=== PATIENT | male | born 1965 | race Caucasian/White ===

== ENCOUNTER 2016-11-01 10:36 | Inpatient (IN) | payer MEDICAID ==
[2016-11-06] MEDS ORDERED: ACETAMINOPHEN 325 MG TAB PO PRN (13:27)
--- NOTE | 2016-11-06 13:34 | PDCARPN ---
Cardiology Progress Note Chief Complaint: PAF Assessment/Plan: Assessment: Rakan is a 50 y/o M with a history of PAF and failed PVI. He also failed Flecainide therapy and presents today for Sotalol loading. He is currently in atrial fibrillation and flutter. He feels like he went into it this morning. Plan: Begin Sotalol 160mg BID and continue to monitor. Will continue Aspirin for now with a CHADS VASc score of 0. If he remains in a.fib he will be started on Eliquis tomorrow. 11/06/16 13:42 Subjective: Pt can feel his heart racing but denies any CP, SOB, or presyncope. Objective: Vital Signs (8 Hrs) Temp Pulse Resp BP Pulse Ox 11/06/16 11:50 36.9 C 87 16 106/82 H 94 Intake/Output (24 Hrs) 11/05/16 11/06/16 11/07/16 05:59 05:59 05:59 Other: Weight 86.3 kg Telemetry: atrial fibrillation at a rate of 150BPM - Physical Exam Constitutional: WDWN Cardiovascular: no murmurs, no rubs, no gallops, other (tachycardic) Peripheral Pulses: 2+: dorsalis-pedis (R), dorsalis-pedis (L) Respiratory: clear to auscultate bilat, no crackles, no wheezes Skin: no edema Neurologic: AAOx3 - . Pending Discharge Within 24 Hours: No ICD10 Worksheet Patient Problems: Problems Problem Status Onset Atrial fibrillation with RVR Acute - ICD10 Problem Qualifiers (1) Atrial fibrillation with RVR
[2016-11-06 13:56] LABS: % IMMATURE GRANULYOCYTES 0.2 % (0.0-1.1); ABSOLUTE IMMATURE GRANULOCYTES 0.01 10^3/uL (0.00-0.10); ADD DIFF? NO; ADD MORPH? NO; ADD SCAN? NO; ATYPICAL LYMPHOCYTE FLAG 0 (0-99); FRAGMENT RBC FLAG 0 (0-99); HEMATOCRIT 46.1 % (40.0-51.0); HEMOGLOBIN 16.9 g/dL (13.7-17.5); LEFT SHIFT FLG 0 (0-99); LIPEMIA HEMOLYSIS FLAG 90 (0-99); MEAN CELL HEMOGLOBIN 33.1 pg (27.9-34.1); MEAN CELL HEMOGLOBIN CONCENTR. 36.7 g/dL (32.4-36.7); MEAN CELL VOLUME 90.4 fL (81.5-99.8); MEAN PLATELET VOLUME 9.8 fL (8.7-11.7); PLATELET CLUMPS FLAG 0 (0-99); PLATELET COUNT 270 10^3/uL (150-400)
[2016-11-06 14:00] LABS: APTT 31.1 SEC (23.0-38.0); INR 1.01 (0.83-1.16); PROTIME(PATIENT) 13.2 SEC (12.0-15.0)
[2016-11-06 14:03] LABS: ANION GAP 10 mEq/L (8-16); CALCIUM 9.5 mg/dL (8.5-10.4); CARBON DIOXIDE 23 mEq/l (22-31); CHLORIDE 105 mEq/L (97-110); CREATININE 0.8 mg/dL (0.7-1.3); GLOMERULAR FILTRATION RATE > 60; GLUCOSE 85 mg/dL (70-100); MAGNESIUM 2.1 mg/dL (1.6-2.3); POTASSIUM 4.1 mEq/L (3.5-5.2); SODIUM 138 mEq/L (134-144)
--- NOTE | 2016-11-06 14:15 | CPEKG ---
Heart Rate: 91 RR Interval: 659 QRSD Interval: 88 QT Interval: 348 QTC Interval: 429 QRS [place]: 35 T Wave [place]: 7 EKG Severity - ABNORMAL ECG - EKG Impression: ATRIAL FIBRILLATION, V-RATE 69-114 EKG Impression: ATRIAL FIBRILLATION HAS REPLACED NORMAL SINUS RHYTHM FROM PRIOR ECG Electronically Signed By: Fernando Heard 07-Nov-2016 16:42:15
[2016-11-06] MEDS: ASPIRIN 325 MG TAB PO SCH (14:45)
[2016-11-06] MEDS: SOTALOL HCL 80 MG TAB PO SCH ×2 (14:47→21:10)
--- NOTE | 2016-11-06 17:30 | CPEKG ---
Heart Rate: 79 RR Interval: 759 QRSD Interval: 84 QT Interval: 408 QTC Interval: 468 QRS [place]: 21 T Wave [place]: -17 EKG Severity - ABNORMAL ECG - EKG Impression: ATRIAL FIBRILLATION, V-RATE 70-86 EKG Impression: BORDERLINE T ABNORMALITIES, INFERIOR LEADS EKG Impression: UNCHANGED IN COMPARISON TO PRIOR Electronically Signed By: Fernando Heard 07-Nov-2016 16:42:34
--- NOTE | 2016-11-06 23:39 | CPEKG ---
Heart Rate: 51 RR Interval: 1176 P-R Interval: 192 QRSD Interval: 82 QT Interval: 484 QTC Interval: 446 P [place]: 30 QRS [place]: 21 T Wave [place]: 3 EKG Severity - NORMAL ECG - EKG Impression: SINUS RHYTHM EKG Impression: NORMAL SINUS RHYTHM HAS REPLACED ATRIAL FIBRILLATION ON PRIOR ECG Electronically Signed By: Fernando Heard 07-Nov-2016 16:42:56
[2016-11-07 05:23] LABS: INR 1.09 (0.83-1.16)
[2016-11-07 05:40] LABS: ANION GAP 7 mEq/L (8-16); CALCIUM 9.3 mg/dL (8.5-10.4); CARBON DIOXIDE 27 mEq/l (22-31); CHLORIDE 106 mEq/L (97-110); CREATININE 0.9 mg/dL (0.7-1.3); GLOMERULAR FILTRATION RATE > 60; GLUCOSE 85 mg/dL (70-100); MAGNESIUM 2.1 mg/dL (1.6-2.3); POTASSIUM 4.2 mEq/L (3.5-5.2); SODIUM 140 mEq/L (134-144)
[2016-11-07] MEDS: SOTALOL HCL 80 MG TAB PO SCH ×2 (09:35→21:46)
[2016-11-07] MEDS: ASPIRIN 325 MG TAB PO SCH (09:35)
[2016-11-07] MEDS ORDERED: TEMAZEPAM 15 MG CAP PO PRN (10:57)
--- NOTE | 2016-11-07 10:57 | PDCARPN ---
Cardiology Progress Note Chief Complaint: PAF sotalol loading Assessment/Plan: Assessment/Plan: Rakan is a 50 y/o M with a history of PAF and failed PVI and Flecainide therapy who presents for Sotalol loading. He was started on Sotalol 160mg BID and his QTc is currently 446. He converted to NSR and feels better. He has a CHADS VASc score of 0. He will continue Aspirin. 11/07/16 10:55 Subjective: Pt feels better since converting to NSR Objective: Vital Signs (8 Hrs) Temp Pulse Resp BP Pulse Ox 11/07/16 09:35 61 11/07/16 08:00 36.8 C 56 L 14 102/59 L 92 11/07/16 04:00 36.4 C 60 18 99/55 L 94 Intake/Output (24 Hrs) 11/06/16 11/07/16 11/08/16 05:59 05:59 05:59 Intake Total 1200 Balance 1200 Intake: Oral (ml) 1200 Other: Weight 86.3 kg Number of Voids Toilet 2 tele- NSR Result Diagrams: 11/06/16 13:40 11/07/16 04:43 EKG: NSR - Physical Exam Constitutional: WDWN Cardiovascular: regular rate and rhythm, no murmurs, no rubs, no gallops Respiratory: clear to auscultate bilat, no crackles, no wheezes Skin: no edema Neurologic: AAOx3 ICD10 Worksheet Patient Problems: Problems Problem Status Onset Atrial fibrillation with RVR Acute - ICD10 Problem Qualifiers (1) Atrial fibrillation with RVR
--- NOTE | 2016-11-07 11:31 | CPEKG ---
Heart Rate: 63 RR Interval: 952 P-R Interval: 180 QRSD Interval: 86 QT Interval: 428 QTC Interval: 439 P [place]: 52 QRS [place]: 30 T Wave [place]: 11 EKG Severity - NORMAL ECG - EKG Impression: SINUS RHYTHM Electronically Signed By: Fernando Heard 08-Nov-2016 08:59:22
[2016-11-08 07:39] VITALS: TEMP 98.5
--- NOTE | 2016-11-08 08:41 | CPEKG ---
Heart Rate: 53 RR Interval: 1132 P-R Interval: 188 QRSD Interval: 88 QT Interval: 476 QTC Interval: 447 P [place]: 42 QRS [place]: 38 T Wave [place]: 16 EKG Severity - NORMAL ECG - EKG Impression: SINUS RHYTHM Electronically Signed By: Fernando Heard 08-Nov-2016 08:59:28
[2016-11-08] MEDS: ASPIRIN 325 MG TAB PO SCH (09:32)
[2016-11-08] MEDS: SOTALOL HCL 80 MG TAB PO SCH (09:32)
--- NOTE | 2016-11-08 11:21 | CPEKG ---
Heart Rate: 58 RR Interval: 1034 P-R Interval: 180 QRSD Interval: 84 QT Interval: 440 QTC Interval: 433 P [place]: 20 QRS [place]: 25 T Wave [place]: 16 EKG Severity - NORMAL ECG - EKG Impression: SINUS RHYTHM Electronically Signed By: Fernando Heard 08-Nov-2016 14:29:46
[2016-11-08 11:38] VITALS: BP 99/59; PULSE 56; RESP 16; O2SAT 95
--- NOTE | 2016-11-08 11:47 | GDS ---
[f rep st] DISCHARGE SUMMARY DISCHARGE DIAGNOSIS: Paroxysmal atrial fibrillation, status post sotalol loading. HOSPITAL COURSE: For detailed H and P, please see prior dictation. Briefly, Rakan Lopez is a 50- year-old male with a history of paroxysmal atrial fibrillation. He failed pulmonary vein isolation in the past. He also had a trial of flecainide and diltiazem, but continued to have breakthrough ep isodes of atrial fibrillation with associated shortness of breath and fatigue. His flecainide was d iscontinued, and he was admitted for sotalol loading. Initially he was started on 160 mg twice daniel y. His dose was then decreased to 120 mg twice daily. He received 3 doses without any associated s ymptoms. He stated he was feeling great. His 4th dose he noted his heart rate was low, and this co ncerned him, and therefore he refused it. Dr. Boogie spent a significant amount of time discussing e risks versus benefits of him continuing the medication. Ultimately, he decided to proceed. His Q Tc at the time of discharge is 433. His heart rate at rest is in the 50s without any associated sym ptoms. He denies any fatigue, lightheadedness or dizziness. PHYSICAL EXAMINATION: GENERAL: The patient appears in no acute distress. VITAL SIGNS: Blood pres sure 105/66, heart rate 58, oxygen saturation 93% on room air. LUNGS: Clear to auscultation. No w heezes, rhonchi, or crackles auscultated. CARDIAC: Regular rate and rhythm without any murmurs, ru bs, or gallops appreciated. EXTREMITIES: Palpable pulses without any evidence of edema. DISCHARGE MEDICATIONS: Sotalol 120 mg twice daily, multivitamin daily, magnesium 400 mg daily, aspi rin 325 mg daily, glucosamine daily, herbal supplement daily. PLAN: The patient is currently stable and ready for discharge home. He will continue sotalol 120 m g twice daily. He will call our office to schedule a followup with Dr. Mejia Boogie in the next fri. His [id number] score is 0, and therefore he will remain on aspirin therapy. On admission, he was in atrial fibrillation but converted to sinus rhythm with his initial dose of sotalol and has r emained in normal sinus rhythm. Greater than 30 minutes was spent coordinating the patient's care today. /[id number]/MODL
[2016-11-09] MEDS ORDERED: MAGNESIUM OXIDE 400 MG TAB PO SCH (09:00)
== END 2016-11-08 12:45 | disposition home or self-care (01) | DRG 310 ==
LOC: F2W 11-06 11:26
PROVIDERS: ADMIT Internal Medicine Cardiovascular Disease; ATTEND Internal Medicine Cardiovascular Disease
PROC: 3E033RZ Introduction of Antiarrhythmic into Peripheral Vein, Percutaneous Approach (ICD-10-PCS; principal; 2016-11-06)
DX: I48.0 Paroxysmal atrial fibrillation (principal); I48.92 Unspecified atrial flutter

== ENCOUNTER → 2018-09-17 | Outpatient (CLI) | payer MEDICAID ==
[~2018-09-17] MED LIST: IOPAMIDOL (ISOVUE 370) 100 ML BTL IV ONE
== END ==
LOC: FIMAGING 13:14
PROVIDERS: ATTEND Internal Medicine Cardiovascular Disease
DX: I48.91 Unspecified atrial fibrillation (principal)
CPT/HCPCS: Q9967

== ENCOUNTER 2018-09-22 07:03 | Observation (INO) | payer MEDICAID ==
[2018-09-22] MEDS ORDERED: NS 1,000 ML IV ONE (07:04)
[2018-09-22] MEDS ORDERED: HEPARIN 10,000 UNIT/10 ML MDV (1,000 UNIT/ML) ONE (07:24)
[2018-09-22] MEDS ORDERED: LIDOCAINE 1% 300 MG/30 ML SDV ONE (07:24)
[2018-09-22] MEDS ORDERED: HEPARIN/DEXTROSE 25,000 UNIT/500 ML BAG ONE (07:24)
[2018-09-22] MEDS ORDERED: BUPIVACAINE 0.75% 10 ML SDV ONE (07:24)
[2018-09-22 07:44] LABS: PLATELET COUNT 253 10^3/uL (150-400)
[2018-09-22 07:55] LABS: INR 0.96 (0.83-1.16)
--- NOTE | 2018-09-22 08:36 | PDGENHP ---
History & Physical Chief Complaint: afib History of Present Illness: s1s2 irreg cta ao3 Cardiorespiratory Assessment: for ruperto and afib ablation
--- NOTE | 2018-09-22 08:50 | PDANEPAE ---
ANE History of Present Illness a-fib s/f RF ablation ANE Past Medical History - Cardiovascular History Hx Arrhythmias: Yes - Pulmonary History Hx Oxygen in Use at Home: No Hx Sleep Apnea: No - Endocrine History Hx Diabetes: No - Chronic Pain History Chronic Pain: No ANE Review of Systems Review of Systems: - Exercise capacity Exercise capacity: >=4 METS ANE Patient History - Allergies Allergies/Adverse Reactions: No Known Allergies Allergy (Verified 09/16/18 10:03) - Home Medications Home medications: home medication list seen and reviewed Home Medications: Aspirin [Aspirin 325 mg (*)] 325 mg PO DAILY PRN 11/06/16 [Last Taken 09/21/18 15:00] Herbals/Supplements -Info Only 1 ea PO DAILY 11/06/16 [Last Taken Unknown] Multivitamins [Multivitamin (*)] 1 each PO DAILY 11/06/16 [Last Taken 09/19/18 08:00] Apixaban [Eliquis] 5 mg PO BID 09/16/18 [Last Taken 09/21/18 20:00] Omeprazole 20 mg PO HS 09/16/18 [Last Taken 09/21/18 20:00] - NPO status NPO Status: no food or drink >8 hours - Anes Hx Anes Hx: no prior problems - Smoking Hx Smoking Status: Never smoked - Alcohol Use Alcohol Use: Occasionally - Family Anes Hx Family Anes Hx: none ANE Labs/Vital Signs - Labs Result Diagrams: 09/22/18 07:25 09/22/18 07:25 - Vital Signs Height: 183 cm Weight: 87.1 kg ANE Physical Exam - Airway Neck exam: FROM Mallampati Score: Class 1 Mouth exam: normal dental/mouth exam - Pulmonary Pulmonary: no respiratory distress - Cardiovascular Cardiovascular: irregularly irregular - ASA Status ASA Status: II ANE Anesthesia Plan Anesthesia Plan: general endotracheal anesthesia
[2018-09-22] MEDS ORDERED: REMIFENTANIL HCL 1 MG VIAL ONE ×2 (09:01→10:56)
[2018-09-22] MEDS ORDERED: PROPOFOL/EMULSION 500 MG/50 ML BOTTLE IV ONE ×2 (09:01→10:56)
[2018-09-22] MEDS ORDERED: fentaNYL 100 MCG/2 ML INJ ONE (09:01)
[2018-09-22] MEDS ORDERED: DEXAMETHASONE 4 MG/ML VIAL ONE (09:02)
[2018-09-22] MEDS ORDERED: ONDANSETRON 4 MG/2 ML VIAL ONE (09:02)
[2018-09-22] MEDS ORDERED: ROCURONIUM 50 MG/5 ML VIAL ONE (09:02)
[2018-09-22] MEDS ORDERED: PHENYLEPHRINE HCL 100 MCG/ML SYR ONE (10:00)
[2018-09-22] MEDS ORDERED: IOPAMIDOL (ISOVUE-300) 100 ML BTL ONE (10:08)
[2018-09-22] MEDS ORDERED: ePHEDrine SULFATE 25 MG/5 ML SYR ONE (10:33)
[2018-09-22] MEDS ORDERED: PROTAMINE SULFATE 50 MG/5 ML VIAL IVP ONE (11:30)
[2018-09-22] MEDS ORDERED: NEOSTIGMINE METHYLSULFATE 5 MG/5 ML SYR ONE (11:41)
--- NOTE | 2018-09-22 11:48 | EPPROC ---
Electrophysiology Procedure Note: ELECTROPHYSIOLOGIC STUDY AND BALLOON-CATHETER MEDIATED CRYOABLATION FOR PAROXYSMAL ATRIAL FIBRILLATION AND ATRIAL FLUTTER Procedures performed: 34612-57 EP evaluation with RA/RV/LA pace/record, with arrhythmia induction 97529-62 EP evaluation with RA/RV pace record, insert/reposition catheter, with arrhythmia induction 84704 Atrial fibrillation ablation Second arrhythmia Intracardiac echocardiogram Transseptal puncture Fluoroscopy INDICATION: Paroxysmal atrial fibrillation Prior ablation at our institution [place] [address] Boogie, recurrent symptoms since post ablation. PROCEDURE: The patient arrived in the Electrophysiology Laboratory in the fasting state. The right groin, left groin and right infraclavicular area were prepped and draped in the usual sterile fashion. Anesthesiologist administered general anesthesia Dr. Michael Avalos . All catheters were placed percutaneously using the Seldinger technique and advanced into position under fluoroscopic guidance. One #7 Spanish deflectable octapolar electrode catheter was placed in the His-bundle position via the left femoral vein (2mm spacing, IVC electrode for unipolar recordings). This catheter was placed in the coronary sinus after transseptal puncture and later placed in the SVC-R subclavian vein junction to pace the right phrenic nerve during right pulmonary vein ablation. One #8 Spanish AcuNaV ultrasound catheter was placed in the left femoral vein and advanced into the right atrium. Programmed stimulation was performed from the right atrium, left atrium (CS) and right ventricle. There was no evidence of AV accessory pathway. Intracardiac echo evaluation of the left atrium and pulmonary veins was performed. Baseline ACT was drawn and heparin bolus was administered and heparin drip was started prior to transseptal puncture. ACT was checked every 15 minutes and maintained in the range of 350-400 seconds. One 14Fr short sheath was placed in the right femoral vein. One 8Fr SL1 sheath was advanced into the right atrium via the 14Fr short sheath. Transseptal puncture was performed under intracardiac ultrasound, fluoroscopic and hemodynamic guidance placing the sheath into the left atrium. ProudOnTV RF needle ( C0 curve) was used. The mean left atrial pressure was [address] angiography of pulmonary veins was done previously. There were distinct LSPV , LIPV, RSPV and RIPV. Pentaray catheter was used to map LA. All 4 PV were reconnected broadly and therefore decision was made to use cryo instead of RF. The SL1 sheath was exchanged for a Medtronic Flexcath sheath. 16 Fr dilator ( engageSimply Chekflo Performer) needed to be used to be able to advance the sheath into the LA due to thick pliable septum. A 28 mm Cryoballoon catheter with a 20 mm Achieve catheter was placed via the sheath into the left atrium. Intracardiac ultrasound and PV angiograms were used to assist in placing the mapping catheter at the antrum of the pulmonary veins. All pulmonary veins were isolated successfully using cryoballoon ablation using freeze/thaw/freeze cycles at 2-3-minute intervals, with good [id number] of isolation. Coumadin ridge/Ligament of Hermes region was ablated. Pre and post pulmonary vein recordings were measured on the spiral Achieve catheter to ensure complete pulmonary vein isolation. During the right-sided ablation, phrenic nerve pacing was performed to assess the phrenic nerve strength ( manually and with ICE visualization of liver movement during phrenic capture) and the phrenic nerve was intact throughout the right-sided ablation and at the end of the procedure. An esophageal temperature probe (12 electrode, Circa) was placed by the anesthesiologist at the beginning of the procedure. Esophageal temperature was monitored continuously and cryoablation was interrupted if esophageal temperature was <15 C. Cryoapplications 9 total cryoablation time 1231 s. ICE imaging post ablation was consistent with pre ablation imaging with no changes noted, moreover there was no left atrial/left ventricular thrombus and no pericardial effusion. Sheath was withdrawn into RA. Mobi sheath was placed via short 15Fr sheath. Halo catheter was placed along TA. Ablation along CT isthmus achieved bidirectional conduction block easily. The catheters were withdrawn. Protamine was given. Venous vascular access sheaths were removed in the EP lab after placing subcutaneous pursestring suture. The patient was recovered from anesthesia. There were no complications. The patient was arousable and moving all four extremities at the end of the procedure. CONCLUSIONS: 1. Paroxysmal atrial fibrillation. 2. Successful pulmonary vein isolation procedure (left and right pulmonary vein antrum) using cryoballoon ablation. 3. Atrial flutter, successful CT isthmus ablation with bidirectional block. 4. No apparent complications. Patient Problems: Problems Problem Status Onset Atrial fibrillation with RVR Acute
--- NOTE | 2018-09-22 12:04 | ECHO ---
[email or web address] [address] [address] Main: [phone] Fax: Transesophageal Echocardiography Name: EMMY RIVAS MR#: [id number] Study Date: 09/22/2018 Study Time: 09:26 AM Date of : 1965 Age: 52 year(s) Height: ( ) Weight: ( ) BSA: Gender: Male Examination: CHRISTOPHE Indication: EP Study Image Quality: Contrast: Requested by: Ashvin Cadena Heart Rate: Rhythm: BP: / Procedure Staff Die Cast Technician: Sydney Nix RDCS Reading Physician: Ashvin Cadena MD Requesting Provider: CHRISTOPHE Exam Details Conclusions: Normal global systolic LV function. An agitated saline study was performed and was negative for intracardiac shunting. No thrombus in left appendage. Mild mitral valve regurgitation is present. Measurements: Chambers Valvular Assessment AV/MV Valvular Assessment TV/PV Normal Normal Normal Name Value Range Name Value Range Name Value Range Visual EF: 55 % Additional Measurements: Findings: Left Ventricle: Normal size left ventricle. Normal global systolic LV function. The ejection fraction is visually estimated to be 55 %. Right Ventricle: Normal size right ventricle. Left Atrium: An agitated saline study was performed and was negative for intracardiac shunting. Left Atrial Appendage: The left atrial appendage is unilobular. Good color flow doppler in the left atrial appendage. Normal Patient: EMMY RIVAS Study Date: 09/22/2018 Page 1 of 2 09:26 AM PW-Doppler flow pattern. No thrombus in left appendage. Mitral Valve: The mitral valve is normal in appearance and function. Mild mitral valve regurgitation is present. No mitral stenosis is present. Aortic Valve: The aortic valve is tri-leaflet. There is no significant aortic valve regurgitation. No aortic valve stenosis is present. Tricuspid Valve: The tricuspid valve is normal in appearance and function. There is no significant tricuspid valve regurgitation. Pulmonic Valve: The pulmonic valve is normal in appearance and function. There is no pulmonic regurgitation seen. Aorta: Normal size. Pericardium: No pericardial effusion. l1n (No Signature Object) Patient: EMMY RIVAS Study Date: 09/22/2018 Page 2 of 2 09:26 AM [id number]
[2018-09-22] MEDS ORDERED: LR 500 ML IV PRN (12:33)
[2018-09-22] MEDS ORDERED: ONDANSETRON 4 MG/2 ML VIAL IVP PRN (12:33)
[2018-09-22] MEDS ORDERED: NALOXONE HCL 0.4 MG/ML INJ IVP PRN (12:33)
[2018-09-22] MEDS ORDERED: fentaNYL 100 MCG/2 ML INJ IVP PRN (12:33)
[2018-09-22] MEDS ORDERED: ALBUTEROL 3 ML DEYVIAL IH PRN (12:33)
[2018-09-22] MEDS ORDERED: DEXAMETHASONE 4 MG/ML VIAL IVP PRN (12:33)
[2018-09-22] MEDS ORDERED: PROMETHAZINE HCL 25 MG/ML INJ IVP PRN (12:33)
[2018-09-22] MEDS ORDERED: OXYCODONE/APAP 5/325 TAB PO PRN (12:33)
[2018-09-22] MEDS ORDERED: PHENYLEPHRINE HCL 100 MCG/ML SYR IVP PRN (12:33)
[2018-09-22] MEDS ORDERED: MEPERIDINE 25 MG/0.5 ML AMP IVP PRN (12:33)
--- NOTE | 2018-09-22 12:35 | POSTANESTH ---
Post Anesthetic Evaluation Cardiovascular Status: Normal, Stable Respiratory Status: Normal, Stable Level of Consciousness/Mental Status: Can Participate in Eval Pain Control: Adequate, Prn Tx Ordered Nausea/Vomiting Control: Adequate, Prn Tx Ordered Complications Possibly Related to Anesthesia: None Noted
[2018-09-22] MEDS: APIXABAN 5 MG TAB PO SCH ×2 (16:03→17:09)
--- NOTE | 2018-09-22 16:40 | CPEKG ---
Test Reason : OPEN Blood Pressure : / mmHG Vent. Rate : 111 BPM Atrial Rate : 190 BPM P-R Int : 137 ms QRS Dur : 088 ms QT Int : 313 ms P-R-T Axes : 000 043 249 degrees QTc Int : 426 ms atrial flutter Paired ventricular premature complexes Repol abnrm suggests ischemia, anterolateral Confirmed by Harish Way ([id number]) on 09/22/2018 4:40:03 PM Referred By: Ashvin Cadena Confirmed By:Harish Way
--- NOTE | 2018-09-22 16:42 | CPEKG ---
Test Reason : OPEN Blood Pressure : / mmHG Vent. Rate : 072 BPM Atrial Rate : 072 BPM P-R Int : 197 ms QRS Dur : 089 ms QT Int : 420 ms P-R-T Axes : 011 045 -63 degrees QTc Int : 460 ms Sinus rhythm Borderline T abnormalities, diffuse leads Confirmed by Harish Way ([id number]) on 09/22/2018 4:41:40 PM Referred By: Ashvin Cadena Confirmed By:Harish Way
[2018-09-22] MEDS ORDERED: PANTOPRAZOLE SODIUM 40 MG TAB PO SCH ×2 (20:45→21:00)
[2018-09-23 04:50] LABS: PLATELET COUNT 244 10^3/uL (150-400)
[2018-09-23] MEDS ORDERED: KETOROLAC 15 MG/1 ML SDV IVP ONE (08:31)
--- NOTE | 2018-09-23 09:06 | ASMTCMCOM ---
CM Note CM Note Notes: Pt is a 52 yo M who underwent A fib ablation. Pt lives with who is at beside. No therapies ordered. Pt will likely be discharged independently. No CM needs identified. Plan: Independent once medically stable. Date Signed: 09/23/2018 09:06 AM Electronically Signed By:GAIL Kearns
[2018-09-23] MEDS: APIXABAN 5 MG TAB PO SCH (09:36)
[2018-09-23 12:05] VITALS: BP 119/67
--- NOTE | 2018-09-23 13:30 | ASDISCHSUM ---
Discharge Information Plan Status:Home with No Needs Medically Cleared to Leave: Discharge Date:09/23/2018 01:14 PM CM D/C Disposition:Home, Routine, Self-Care ADT D/C Disposition:Home, Routine, Self-Care Projected Discharge Date:09/23/2018 01:14 PM Transportation at D/C:Family Discharge Delay Reason: Follow-Up Date:09/23/2018 01:14 PM Discharge Slot: Final Diagnosis: Placement Information Patient Contact Information Contact Name:ZOË Relationship:Other Address:[address] [place] [address] Work Phone: City:[place] Alternate Phone: [facility]/Zip Code:[place] [address] Email: Financial Information Financial Class:Medicaid Primary Plan Desc:MEDICAID [facility] FIRST FREELANCE DATA ENTRY Primary Plan Number:[id number] Secondary Plan Desc: Secondary Plan Number: Assessment Information LACE LACE Length of stay for Answers: Less than 1 day current admission Acuity / Level of Answers: No Care: Did the patient have an inpatient admission? Comorbidities - select Answers: Other Notes: AFib all that apply # of Emergency department Answers: 0 visits in the last 6 months Score: 1 Date Signed: 09/23/2018 01:29 PM Electronically Signed By:GAIL Kearns [facility] CM Progress Note CM Note CM Note Notes: Pt is a 52 yo M who underwent A fib ablation. Pt lives with who is at beside. No therapies ordered. Pt will likely be discharged independently. No CM needs identified. Plan: Independent once medically stable. Date Signed: 09/23/2018 09:06 AM Electronically Signed By:GAIL Kearns Case Management Discharge Plan Note Case Management Discharge Discharge Order Complete? Answers: Yes Patient to Obtain Answers: via Family Medications Transportation Arranged Answers: Family/Friends Family Notified Answers: Yes Discharge Comments Notes: Discharge independently. Family to transport. Date Signed: 09/23/2018 01:28 PM Electronically Signed By:GAIL Kearns Intervention Information Intervention Type:*Incorrect Registration Date of Service:09/22/2018 02:49 PM Patient Type:Inpatient Staff Member:Jenifer Rainey Hours: Discipline: Severity: Comment:
--- NOTE | 2018-09-23 13:41 | ECHO ---
[email or web address] [address] [address] Main: [phone] Fax: Transthoracic Echocardiogram Name: EMMY RIVAS MR#: [id number] Study Date: 09/23/2018 Study Time: 07:27 AM Date of : 1965 Age: 52 year(s) Height: 182.9 cm (72 in.) Weight: 87.09 kg (192 lb.) BSA: 2.09 m2 Gender: Male Examination: Echo Indication: F/U Post EP Study Image Quality: Adequate Contrast: Requested by: Ashvin Cadena BP: / Heart Rate: Rhythm: Indication: F/U Post EP Study Procedure Staff Tracer Bullet Section Supervisor: Sydney Nix RDCS Reading Physician: Maryjo Dejesus MD Requesting Provider: Conclusions: Normal size left ventricle. No LV hypertrophy. Normal global systolic LV function. The ejection fraction is visually estimated to be 55 %. No regional wall motion abnormality. Normal diastolic LV function. Normal size right ventricle. Normal RV function. Mild mitral valve regurgitation is present. No pericardial effusion. Measurements: Chambers Valvular Assessment AV/MV Valvular Assessment TV/PV Normal Normal Normal Name Value Range Name Value Range Name Value Range Ao Effie (2D): 2.8 cm (1.4 cm-2.6 AV Vmax: 1.29 m/s (1 m/s-1.7 PV Vmax: 1.03 m/s (0.6 m/s-0.9 cm) m/s) m/s) IVSd (2D): 1.1 cm (0.6 cm-1.1 AV maxP mmHg ( - ) PV PGmax: 4 mmHg ( - ) cm) AV meanP mmHg ( - ) LVDd (2D): 5.1 cm (4.2 cm-5.9 EBONY (VTI): 2.2 cm ( - ) cm) MV E Vmax: 0.74 m/s ( - ) LVDs (2D): 3.4 cm (2.1 cm-4 MV A Vmax: 0.58 m/s ( - ) cm) MV E/A: 1.28 ( - ) LVPWd (2D): 1.0 cm (0.6 cm-1 cm) MV PHT: 0.059 s ( - ) LVOTd 2.2 cm 2.2 cm mm MVA (PHT): 3.7 s ( - ) Visual EF: 55 % RVDd(2D): 3.1 cm (1.9 cm-3.8 cmmm) Patient: EMMY RIVAS Study Date: 09/23/2018 Page 1 of 2 07:27 AM Continued Measurements: Chambers Valvular Assessment AV/MV Name Value Name Value LADs: 3.8 cm MV DecTime: 211 m/s LADs Lon.0 cm MV E' Septal: 0.09 m/s LA Area: 20.7 cm2 MV E/E' Septal: 8.40 LA Volume: 60 ml MV E/E' Lateral: 5.10 LA Volume Index: 28.7 ml/m2 RA Area: 20.3 cm2 Additional Vessels Name Value Ao Ascendin.0 cm Inferior Vena Cava: 1.0 cm Findings: Left Ventricle: Normal size left ventricle. No LV hypertrophy. Normal global systolic LV function. The ejection fraction is visually estimated to be 55 %. No regional wall motion abnormality. Normal diastolic LV function. Right Ventricle: Normal size right ventricle. Normal RV function. Left Atrium: The left atrium is normal in size. Right Atrium: The right atrium is borderline dilated. Mitral Valve: The mitral valve is normal in appearance and function. Mild mitral valve regurgitation is present. No mitral stenosis is present. Aortic Valve: The aortic valve is tri-leaflet. There is no significant aortic valve regurgitation. No aortic valve stenosis is present. Tricuspid Valve: The tricuspid valve is normal in appearance and function. Trivial tricuspid valve regurgitation. Pulmonic Valve: The pulmonic valve is normal in appearance and function. There is no pulmonic regurgitation seen. Aorta: The aorta is normal. Normal size aortic root measuring 2.8 cm. Normal size ascending aorta measuring 3.0 cm. IVC: The IVC is normal sized. Pericardium: No pericardial effusion. No pleural effusion. (No Signature Object) Patient: EMMY RIVAS Study Date: 09/23/2018 Page 2 of 2 07:27 AM [id number]
--- NOTE | 2018-09-23 15:24 | GDS ---
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 DISCHARGE DIAGNOSES: 1. Atrial fibrillation, status post successful re-isolation of all 4 pulmonary veins. 2. Atrial flutter, status post successful ablation of the cavotricuspid isthmus achieving bidirectio nal block. PROCEDURES PERFORMED: During hospitalization: 1. Electrocardiogram. 2. Echocardiogram. 3. Electrophysiology study. 4. Atrial fibrillation ablation. 5. Atrial flutter ablation. HOSPITAL COURSE: The patient presented 09/22/2018, for atrial fibrillation and atrial flutter ablati on in the setting of increasingly frequent and symptomatic episodes of atrial arrhythmia. He underwe nt successful balloon catheter mediated cryo balloon ablation for paroxysmal atrial fibrillation, in addition to successful CT isthmus ablation with bidirectional block for atrial flutter. There were n o intra procedure complications, and he has done very well in the post procedure. He had no issues o vernight, and has been up ambulating around his room this morning. He is appropriate and stable for discharge home today. PHYSICAL EXAMINATION: GENERAL: Alert and oriented x4, no apparent distress. VITAL SIGNS: Blood pr essure 111/65, heart rate 80, respiratory rate 15, SpO2 94% on room air, temp 36.9 degrees Celsius. RESPIRATORY: Lungs are clear to auscultation. No adventitious breath sounds. CARDIAC: Normal S1, S2, no S3, S4, or murmurs. Rhythm is regular. ABDOMEN: Normoactive bowel sounds times all 4 quadra nts. No masses, tenderness. ABDOMEN: Soft to palpation. SKIN: [place], warm, dry without cyanosis, clubbing, or peripheral edema. EXTREMITIES: Bilateral purse string sutures removed intact without e vidence of hematoma, redness, oozing, swelling, or warmth. Pulses are 2+ bilaterally. No edema. LABORATORY STUDIES: Drawn today. WBC is 10.33, CBC and BMP are otherwise stable compared to preproc edure. Troponin is 3.98. Elevated WBCs and elevated troponin are to be expected in the postprocedur e setting. PROCEDURES: Electrophysiology study, atrial fibrillation ablation, and atrial flutter ablation, as m entioned above. Preliminary echocardiogram done this morning demonstrates a stable left ventricular systolic function without new wall motion abnormalities or pericardial effusion. Electrocardiogram done this morning demonstrates normal sinus rhythm with stable ST-T abnormalities consistent with baseline, no new ND. interval abnormalities. DISCHARGE DISPOSITION: The patient will be discharged home in stable condition. He is under activit y restrictions as below. DISCHARGE MEDICATIONS: Please see discharge medication reconciliation sheet for full detail. Please note that the patient has been restarted on his Eliquis, and he will continue an antacid for the nex t 6 weeks. DISCHARGE INSTRUCTIONS: Post atrial flutter and atrial fibrillation ablation instructions reviewed w ith patient in detail. We discussed activity restrictions, including lifting no more than 10 pounds, and avoidance of submerged bathing for 10 days. He will get up and walk around every 45 minutes for 45 days. He will avoid unpressurized air travel or scuba diving for the next 6 months, and he will present to our clinic for an echocardiogram prior to engaging in either of these activities. We also reviewed bleeding precautions, medication compliance, monitoring for signs and symptoms of infection , monitoring for atrial esophageal fistula, and monitoring for sustained arrhythmias. The patient did demonstrate several periods of nocturnal hypoxia overnight. We have ordered a [facility] nal oxygen study to be performed at home, and we will plan on referral to Pulmonology, if this testin g is abnormal. At the time of discharge, patient verbalizes understanding of all instructions withou t questions or concerns. He will contact our clinic to schedule a followup visit in 2 weeks, and he will contact us with any new or concerning symptoms prior to his upcoming visit. Time spent on discharge: Greater than 30 minutes. /[id number]/MODL
--- NOTE | 2018-09-24 09:16 | CPEKG ---
Test Reason : OPEN Blood Pressure : / mmHG Vent. Rate : 080 BPM Atrial Rate : 080 BPM P-R Int : 159 ms QRS Dur : 091 ms QT Int : 396 ms P-R-T Axes : 054 017 -39 degrees QTc Int : 457 ms Sinus rhythm Probable left atrial enlargement nssttw changes Confirmed by Harish Way ([id number]) on 09/24/2018 9:16:05 AM Referred By: Ashvin Cadena Confirmed By:Harish Way
== END 2018-09-23 13:14 | disposition home or self-care (01) ==
LOC: FCATH 07:03 → F2N 11:50 → INTOOBSV 11:50
PROVIDERS: ADMIT Internal Medicine Cardiovascular Disease; ATTEND Internal Medicine Cardiovascular Disease
DX: I48.0 Paroxysmal atrial fibrillation (principal); I48.92 Unspecified atrial flutter; R09.02 Hypoxemia; Z79.01 Long term (current) use of anticoagulants
CPT/HCPCS: 93005; 93306; 93312; 93613; 93655; 93656; 93662; C1893; C1730; C1731; C1732; C1733; C1759; C1766; J1100; J1644; J1885; J2370; J2405; J2704; J2710; J2720; J3010; Q9967